=== PATIENT | female | born 1970 | race African-American/Black ===

== ENCOUNTER → 2019-05-21 | Outpatient (CLI) | payer OTHER ==
[2014-06-30 13:43] VITALS: BP 127/77
[~2019-05-21] MED LIST: ALBU2.5V14 NEB; LORA10TA68 PO; OMEP20CA16 PO; PANT40TA5 PO
--- NOTE | 2019-05-21 18:42 | RAD ---
INDICATION: Cough and congestion with shortness of air COMPARISON: July 20, 2018 FINDINGS: 2 view of chest obtained. Cardiac silhouette is similar to prior. Mild haziness retrocardiac region. Mild degenerative changes spine IMPRESSION: * Mild haziness at retrocardiac region could be secondary to atelectasis or early infiltrate. Electronically signed by: Thom Rebolledo MD (05/21/2019 6:39 PM) [id number]
== END | disposition home or self-care (01) ==
LOC: RAD 18:12
PROVIDERS: ATTEND Family Medicine
DX: R05 Cough (principal); M47.814 Spondylosis without myelopathy or radiculopathy, thoracic region
CPT/HCPCS: 71046

== ENCOUNTER → 2019-07-10 | Outpatient (CLI) | payer OTHER ==
[2014-06-30 13:43] VITALS: BP 127/77
[~2019-07-10] MED LIST changes: +AZIT250T6 PO; +IOHEXOL 300 MG/ML 75 ML VIAL. IV ONE; +MONT10TA80 PO; +PRED5TAB PO
--- NOTE | 2019-07-10 09:11 | RAD ---
EXAM: Chest CT with intravenous contrast. HISTORY: Asthma exacerbation. TECHNIQUE: Computed tomographic images of the chest were obtained following the administration of intravenous contrast. Multiplanar reformatting was performed. *One or more of the following individualized dose reduction techniques were utilized for this examination: 1. Automated exposure control. 2. Adjustment of the mA and/or kV according to patient size. 3. Use of iterative reconstruction technique. COMPARISON: None. FINDINGS: The heart is normal in size. The aorta is normal in caliber. There is no lymphadenopathy. There is no pneumothorax or pleural effusion. There are 3 mm nodules along the right major and minor fissures, consistent with incidental fissural lymph nodes. No suspicious nodule is seen. There is no infiltrate. There is a ill-defined hypodense lesion within the lateral right hepatic lobe measuring a partially 4.0 cm. There is a small splenule along the inferior aspect of the spleen. There is a 1.7 cm nodule containing a coarse calcification within the 3:00 position of the right breast. There is no suspicious osseous lesion. IMPRESSION: 1. No acute thoracic finding. 2. 4.7 cm hypodense lesion within the lateral right hepatic lobe. Liver protocol CT or MRI is recommended for characterization. 3. 1.7 cm nodule containing a calcification within the medial right breast. Correlate with recent mammogram findings. Electronically signed by: Gloria Romero MD (07/10/2019 9:08 AM) [id number]
== END | disposition home or self-care (01) ==
LOC: CT 08:31
PROVIDERS: ATTEND Family Medicine
DX: J45.901 Unspecified asthma with (acute) exacerbation (principal); R92.1 Mammographic calcification found on diagnostic imaging of breast
CPT/HCPCS: 71260; Q9967

== ENCOUNTER 2019-07-11 13:20 | Observation (INO) | payer OTHER ==
[~2019-07-11] VITALS: Ht 160 cm; Wt 110.3 kg
[~2019-07-11 13:20] MED LIST changes: -AZIT250T6 PO; -IOHEXOL 300 MG/ML 75 ML VIAL. IV ONE; -MONT10TA80 PO; -PRED5TAB PO
[2019-07-11] MEDS ORDERED: IV NORMAL SALINE 1,000ML 1,000 ML IV ONE (13:45)
[2019-07-11 14:04] LABS: BASO # 0.1 x10^3/uL (0.0-0.2); BASO % 1 % (0-3); EOS # 0.5 x10^3/uL (0.0-0.7); EOS % 6 % (0-3); HEMATOCRIT 38.1 % (36.0-47.0); LYMPH # 0.8 x10^3/uL (1.0-4.8); LYMPH % 10 % (24-48); MEAN CORPUSCULAR HEMOGLOBIN 26 pg (25-35); MEAN CORPUSCULAR HGB CONC 32 g/dL (31-37); MEAN CORPUSCULAR VOLUME 82 fL (79-100); MONO # 0.2 x10^3/uL (0.0-1.1); MONO % 3 % (0-9); NEUT # 6.8 x10^3uL (1.8-7.7); NEUT % 81 % (31-73); PLATELET COUNT 286 x10^3/uL (140-400); RED BLOOD COUNT 4.66 x10^6/uL (3.50-5.40); RED CELL DISTRIBUTION WIDTH 15.4 % (11.5-14.5); WHITE BLOOD COUNT 8.4 x10^3/uL (4.0-11.0)
--- NOTE | 2019-07-11 14:08 | RAD ---
EXAM: Chest, single view. HISTORY: Shortness of breath. COMPARISON: 07/10/2019 FINDINGS: A frontal view of the chest is obtained. There is no infiltrate, pleural effusion or pneumothorax. The heart is normal in size. IMPRESSION: No acute pulmonary finding. Electronically signed by: Gloria Romero MD (07/11/2019 2:05 PM) [id number]
[2019-07-11 14:13] LABS: CALCIUM 9.2 mg/dL (8.5-10.1); CREATININE 0.9 mg/dL (0.6-1.0); GFR 80.2; POTASSIUM 3.7 mmol/L (3.5-5.1)
[2019-07-11 14:19] LABS: ALBUMIN 3.6 g/dL (3.4-5.0); ALBUMIN/GLOBULIN RATIO 0.8 (1.0-1.7); TOTAL BILIRUBIN 0.4 mg/dL (0.2-1.0); TOTAL PROTEIN 7.9 g/dL (6.4-8.2)
[2019-07-11] MEDS ORDERED: ALBUTEROL SULFATE 2.5 MG/3 ML NEBU. CONT NEB ONE (14:30)
--- NOTE | 2019-07-11 14:32 | PHYS DOC ---
Past History Past Medical History: COPD, Hypertension Past Surgical History: No Surgical History Alcohol Use: None General Adult EDM: Chief Complaint: SHORTNESS OF BREATH HPI: HPI: 49-year-old female presents as a referral from her primary care physician for increased shortness of breath. Patient has been battling shortness of breath for couple weeks. She has had a cough for more than 2 weeks. Patient is negative for COVID-19. Her blood work was positive for Klebsiella pneumonia. She has been taking doxycycline. Patient has been taking her breathing treatments as prescribed. She has known asthmatic. She is never been hospitalized before. She continues to feel like she is wheezing. She went to her primary care physician today who gave her 125 Solu-Medrol and advised that she come here to consider admission. Patient denies fever chills. Review of Systems: Review of Systems: Constitutional: Denies fever or chills Eyes: Denies change in visual acuity HENT: Denies nasal congestion or sore throat Respiratory: Cough with shortness of breath Cardiovascular: Denies chest pain or edema GI: Denies abdominal pain, nausea, vomiting, bloody stools or diarrhea : Denies dysuria Musculoskeletal: Denies back pain or joint pain Integument: Denies rash Neurologic: Denies headache, focal weakness or sensory changes Endocrine: Denies polyuria or polydipsia Lymphatic: Denies swollen glands Psychiatric: Denies depression or anxiety Heart Score: Risk Factors: Risk Factors: DM, Current or recent (<one month) smoker, HTN, HLP, family history of CAD, obesity. Risk Scores: Score 0 - 3: 2.5% MACE over next 6 weeks - Discharge Home Score 4 - 6: 20.3% MACE over next 6 weeks - Admit for Clinical Observation Score 7 - 10: 72.7% MACE over next 6 weeks - Early Invasive Strategies Current Medications: Current Meds: Current Medications Medications (Trade) Dose Ordered Sig/Mare Start Time Stop Time Status Last Admin Dose Admin Sodium Chloride 1,000 ml @ 1,000 mls/hr 1X ONCE 07/11/19 13:45 07/11/19 14:44 Allergies: Allergies: Allergies Coded Allergies Type Severity Reaction Last Updated Verified Penicillins Allergy Unknown 06/24/14 Yes Physical Exam: PE: Constitutional: Well developed, well nourished, no acute distress, non-toxic appearance. [] HENT: Normocephalic, atraumatic, bilateral external ears normal, oropharynx moist, no oral exudates, nose normal. [] Eyes: PERRLA, EOMI, conjunctiva normal, no discharge. [] Neck: Normal range of motion, no tenderness, supple, no stridor. [] Cardiovascular:Heart rate regular rhythm, no murmur [] Lungs & Thorax: Diffuse bilateral expiratory wheezing [] Abdomen: Bowel sounds normal, soft, no tenderness, no masses, no pulsatile masses. [] Skin: Warm, dry, no erythema, no rash. [] Back: No tenderness, no CVA tenderness. [] Extremities: No tenderness, no cyanosis, no clubbing, ROM intact, no edema. [] Neurologic: Alert and oriented X 3, normal motor function, normal sensory function, no focal deficits noted. [] Psychologic: Affect normal, judgement normal, mood normal. [] Current Patient Data: Labs: Laboratory Tests Test 07/11/19 13:50 White Blood Count 8.4 x10^3/uL (4.0-11.0) Red Blood Count 4.66 x10^6/uL (3.50-5.40) Hemoglobin 12.0 g/dL (12.0-15.5) Hematocrit 38.1 % (36.0-47.0) Mean Corpuscular Volume 82 fL (79-100) Mean Corpuscular Hemoglobin 26 pg (25-35) Mean Corpuscular Hemoglobin Concent 32 g/dL (31-37) Red Cell Distribution Width 15.4 % (11.5-14.5) H Platelet Count 286 x10^3/uL (140-400) Neutrophils (%) (Auto) 81 % (31-73) H Lymphocytes (%) (Auto) 10 % (24-48) L Monocytes (%) (Auto) 3 % (0-9) Eosinophils (%) (Auto) 6 % (0-3) H Basophils (%) (Auto) 1 % (0-3) Neutrophils # (Auto) 6.8 x10^3uL (1.8-7.7) Lymphocytes # (Auto) 0.8 x10^3/uL (1.0-4.8) L Monocytes # (Auto) 0.2 x10^3/uL (0.0-1.1) Eosinophils # (Auto) 0.5 x10^3/uL (0.0-0.7) Basophils # (Auto) 0.1 x10^3/uL (0.0-0.2) Sodium Level 142 mmol/L (136-145) Potassium Level 3.7 mmol/L (3.5-5.1) Chloride Level 103 mmol/L (98-107) Carbon Dioxide Level 30 mmol/L (21-32) Anion Gap 9 (6-14) Blood Urea Nitrogen 11 mg/dL (7-20) Creatinine 0.9 mg/dL (0.6-1.0) Estimated GFR (Cockcroft-Gault) 80.2 BUN/Creatinine Ratio 12 (6-20) Glucose Level 98 mg/dL (70-99) Lactic Acid Level 1.0 mmol/L (0.4-2.0) Calcium Level 9.2 mg/dL (8.5-10.1) Total Bilirubin 0.4 mg/dL (0.2-1.0) Aspartate Amino Transferase (AST) 26 U/L (15-37) Alanine Aminotransferase (ALT) 28 U/L (14-59) Alkaline Phosphatase 92 U/L (46-116) Total Protein 7.9 g/dL (6.4-8.2) Albumin 3.6 g/dL (3.4-5.0) Albumin/Globulin Ratio 0.8 (1.0-1.7) L Vital Signs: Vital Signs Date Time Temp Pulse Resp B/P (MAP) Pulse Ox O2 Delivery O2 Flow Rate FiO2 07/11/19 13:54 98.0 120 18 154/105 (121) 96 Room Air EKG: EKG: [] Radiology/Procedures: Radiology/Procedures: [] Course & Med Decision Making: Course & Med Decision Making Pertinent Labs and Imaging studies reviewed. (See chart for details) The patient is wheezing considerably. We will give her a 10 mg albuterol treatment. I spoke with Dr. Maravilla and he has accepted the patient for admission. The patient is in agreement with this plan. [] Dragon Disclaimer: Dragon Disclaimer: This electronic medical record was generated, in whole or in part, using a voice recognition dictation system. Departure Departure: Impression: Primary Impression: Asthma exacerbation Qualified Codes: J45.41 - Moderate persistent asthma with (acute) exacerbation Disposition: 09 ADMITTED INPATIENT Admitting Physician: Jeramie Maravilla Condition: STABLE Referrals: JERAMIE MARAVILLA MD (PCP) TERRANCE NARANJO DO July 11, 2019 14:32
[2019-07-11 16:24] VITALS: BP 155/98
[2019-07-11] MEDS ORDERED: START PACK-AZITHROMY 100MG/5ML ORAL.SUSP 15ML BOTTLE STARTER PACK PO ONE (17:15)
[2019-07-11] MEDS ORDERED: DIGOXIN IV 500 MCG/2 ML AMPUL. IV ONE ×2 (18:00→18:30)
[2019-07-11] MEDS ORDERED: FUROSEMIDE 20 MG/2 ML VIAL IVP ONE (18:30)
[2019-07-11 19:39] VITALS: BP 139/93
[2019-07-11] MEDS: IPRATRPIUM/ALBUTEROL 0.5/2.5MG 3 ML NEBU. NEB SCH (21:16)
[2019-07-11] MEDS: MONTELUKAST 10 MG TABLET. PO SCH (21:16)
[2019-07-11] MEDS: methylPREDNISolone SOD SUCC PF 40 MG/ML VIAL. IV SCH (21:16)
[2019-07-11 22:06] VITALS: BP 144/91
[2019-07-12] MEDS: IPRATRPIUM/ALBUTEROL 0.5/2.5MG 3 ML NEBU. NEB SCH ×4 (05:00→21:00)
[2019-07-12 05:16] VITALS: BP 138/84
[2019-07-12] MEDS: PANTOPRAZOLE 40 MG TABLET. PO SCH (08:30)
[2019-07-12] MEDS: methylPREDNISolone SOD SUCC PF 40 MG/ML VIAL. IV SCH ×3 (08:30→20:42)
[2019-07-12] MEDS: CETIRIZINE HCL 10 MG TABLET PO SCH (08:30)
[2019-07-12] MEDS: AZITHROMYCIN 250 MG TABLET. PO SCH (08:30)
[2019-07-12] MEDS ORDERED: methylPREDNISolone SOD SUCC PF 40 MG/ML VIAL. IV SCH (09:00)
[2019-07-12] MEDS ORDERED: IPRATRPIUM/ALBUTEROL 0.5/2.5MG 3 ML NEBU. ONE (10:12)
[2019-07-12 10:52] VITALS: BP 163/92
[2019-07-12 15:18] VITALS: BP 135/87
[2019-07-12 19:24] VITALS: BP 144/85
--- NOTE | 2019-07-12 19:42 | PN ---
DATE: 07/11/2019 SUBJECTIVE: A 49-year-old female who came in with acute exacerbation of asthma. The patient is resting comfortably. She is breathing a little bit easier. She says she is able to mobilize a little bit better than she has been. OBJECTIVE: VITAL SIGNS: Blood pressure is 135/87, respiratory rate 18, pulse 99, afebrile, oxygen saturation up to 98% on room air. GENERAL: The patient does have expiratory wheezes, but there is better movement of air in between the wheezes. She says she is feeling better. CARDIOVASCULAR: Tachycardic. ABDOMEN: Soft. EXTREMITIES: No clubbing, cyanosis or edema. NEUROLOGIC: Intact. IMPRESSION: Acute exacerbation of asthma, probably allergy induced. We will continue on her breathing treatments, allergy treatments with steroids and the like and make further evaluation on her as indicated. We will continue on tapering doses of steroids and hopefully ready for discharge here soon. TARAN HILARIO MD DR: JOYCE/amy JOB#: [id number] / [id number]
[2019-07-12] MEDS: MONTELUKAST 10 MG TABLET. PO SCH (20:42)
[2019-07-12 21:51] VITALS: BP 150/98
[2019-07-13] MEDS: IPRATRPIUM/ALBUTEROL 0.5/2.5MG 3 ML NEBU. NEB SCH ×2 (05:05→09:22)
[2019-07-13 05:34] VITALS: BP 139/89
[2019-07-13] MEDS ORDERED: LACTOBACILLUS RHAMNOSUS GG 1 CAPSULE. PO SCH (09:00)
[2019-07-13] MEDS: PANTOPRAZOLE 40 MG TABLET. PO SCH (09:27)
[2019-07-13] MEDS: methylPREDNISolone SOD SUCC PF 40 MG/ML VIAL. IV SCH (09:27)
[2019-07-13] MEDS: CETIRIZINE HCL 10 MG TABLET PO SCH (09:27)
[2019-07-13] MEDS: AZITHROMYCIN 250 MG TABLET. PO SCH (09:28)
[2019-07-13] MEDS ORDERED: PRED5TAB PO (10:25)
[2019-07-13] MEDS ORDERED: AZIT250T6 PO (10:25)
[2019-07-13] MEDS ORDERED: MONT10TA80 PO (10:25)
--- NOTE | 2019-07-13 15:06 | DS ---
DATE OF DISCHARGE: 07/11/2019 HOSPITAL COURSE: A 49-year-old female who has been sick for the last 6 weeks with asthma. She has been having trouble breathing, wheezing, tightness, shortness of breath, dyspnea with exertion of about 5 feet. The patient had wanted to come in because of the COVID crisis and finally came in because she was exhausted and so weak she could not move without getting short of breath, got increasingly progressively worse despite being treated as an outpatient. The patient finally came in, went through the ER in the usual protocol and was admitted to the hospital with acute on top of chronic exacerbation of her COPD. The patient had a pulse rate of about 120. She did run a low-grade temperature. Blood pressure was elevated as well as up to 154/105. The patient was given episodes of digoxin because her heart rate went as high as 130 at one time and we had to give her digitalis 250 mcg x 2. Oxygen saturation had dropped down to 93%, but the heart rate compensated for that. Her lungs showed wheezing in all 5 lobes and using some accessory muscles, but with aggressive pulmonary toilet and IV Solu-Medrol, the patient made excellent progress and finally the lungs cleared and her heart rate did come down into a reasonable range. She felt much better, finally cleared of all wheezing and was discharged home on oral prednisone taper. She had nebulizer at home with DuoNeb. She demanded to be discharged and felt safe enough going home with family members and DuoNeb treatments, tapering dose of prednisone, staying on Zithromax and she will be discharged home with that. She did have anemia at 9.3 and 30, but other than that her chemistries are basically stable. She did have a slight elevation of blood sugar at 112, albumin 2.6 and serology was COVID-19 negative. Urine was basically, she did have a problem with urine. The patient made good progress and was discharged home. She did have a low-grade temperature, but she will continue on her Zithromax and she will continue to be monitored as an outpatient. IMPRESSION: Acute on top of chronic exacerbation of asthma, hypertensive urgency, sinus tachycardia. She will be on a heart healthy diet, decreased activity, breathing treatments at home and tapering dose of prednisone, and follow up accordingly. TARAN HILARIO MD DR: JOYCE/amy JOB#: [id number] / [id number]
[2019-07-14] MEDS ORDERED: predniSONE 20 MG TABLET PO SCH (09:00)
[2019-07-14] MEDS ORDERED: predniSONE 5 MG TABLET PO SCH (09:00)
[2019-07-16] MEDS ORDERED: predniSONE 10 MG TABLET PO SCH (09:00)
[2019-07-18] MEDS ORDERED: predniSONE 10 MG TABLET PO SCH (09:00)
[2019-07-20] MEDS ORDERED: predniSONE 10 MG TABLET PO SCH (09:00)
[2019-07-22] MEDS ORDERED: predniSONE 20 MG TABLET PO SCH (09:00)
[2019-07-24] MEDS ORDERED: predniSONE 10 MG TABLET PO SCH (09:00)
[2019-07-26] MEDS ORDERED: predniSONE 10 MG TABLET PO SCH (09:00)
[2019-07-28] MEDS ORDERED: predniSONE 5 MG TABLET PO SCH (09:00)
== END 2019-07-13 12:30 | disposition home or self-care (01) ==
LOC: ER 13:20 → UNDOADMIN 15:35 → 1 SOUTH 15:35 → INTOOBSV 15:50 → ER 15:50
PROVIDERS: ADMIT Family Medicine; ATTEND Family Medicine
DX: J45.901 Unspecified asthma with (acute) exacerbation (principal); J44.1 Chronic obstructive pulmonary disease with (acute) exacerbation; I16.0 Hypertensive urgency; D64.9 Anemia, unspecified; R00.0 Tachycardia, unspecified; Z20.828 Contact with and (suspected) exposure to other viral communicable diseases; Z88.0 Allergy status to penicillin
CPT/HCPCS: 36415; 71045; 80053; 83605; 83880; 84145; 85025; 85379; 87040; 94640; 96374; 96375; 96376; 99285; G0378; J0456; J1160; J2920; 96360; G0379; J7030; J7613

== ENCOUNTER → 2019-08-27 | Outpatient (CLI) | payer OTHER ==
[~2019-08-27] MED LIST changes: +AZIT250T6 PO; +MONT10TA80 PO; +PRED5TAB PO
--- NOTE | 2019-08-27 08:29 | RAD ---
VENOUS LOWER EXTREMITY LEFT History: Reason: LLE EDEMA / Spl. Instructions: / History: Comparison: None. Discussion: Multiple longitudinal and transverse high resolution real-time images of the venous system of left lower extremity were obtained with color and Doppler sampling. The common femoral, superficial femoral, popliteal and proximal calf veins are all patent and demonstrate normal flow and compressibility. Normal respiratory phasicity and augmentation is present. Impression: 1. No evidence of deep vein thrombosis. Electronically signed by: Bunny Jean DO (08/27/2019 8:26 AM) [id number]
== END | disposition home or self-care (01) ==
LOC: US 07:53
PROVIDERS: ATTEND Family Medicine
DX: R60.0 Localized edema (principal)
CPT/HCPCS: 93971

== ENCOUNTER → 2020-08-28 | Outpatient (CLI) | payer OTHER ==
[~2020-08-28] MED LIST changes: -PANT40TA5 PO; +PANT40TA6 PO
--- NOTE | 2020-08-28 15:06 | RAD ---
Exam: CT abdomen/pelvis without intravenous contrast Indication: Low back pain, pelvic pain, renal stone Comparison: CT chest 07/10/2019 Technique: Helical CT imaging performed of the abdomen and pelvis without the use of intravenous cont rast. Sagittal and coronal reformats were obtained. One or more of the following individualized dose reduction techniques were utilized for this examinat ion: 1. Automated exposure control 2. Adjustment of the mA and/or kV according to patient size 3. Use of iterative reconstruction technique. Findings: Inherently limited evaluation without intravenous contrast. Lower chest: Bases are clear. The heart is normal in size. Liver: There is a 2.8 cm hypodense lesion in the subcapsular right hepatic lobe with greater than flu id density. The liver is otherwise normal in appearance. Gallbladder/Biliary Tree: Gallbladder is contracted. Bile ducts are unremarkable. Pancreas: Normal. Spleen: Normal. Adrenal Glands: Normal. Kidneys/Ureters/Bladder: Kidneys are normal in size. No nephrolithiasis or hydronephrosis. Ureters ar e normal. Bladder is incompletely distended but unremarkable. Reproductive Organs: Uterus is anteverted. There is no adnexal mass. Stomach, small bowel, and colon: Stomach and small bowel are normal. Appendix is not visualized. The colon is unremarkable. Vasculature: No aortic aneurysm. Lymph Nodes: Multiple small mesenteric and retroperitoneal lymph nodes including prominent lymph node s in the right lower quadrant measuring up to 5 mm short axis (image [id number], series 2). Peritoneum and retroperitoneum: No free fluid or free air. Bones: No acute osseous abnormality. Miscellaneous: Small fat-containing umbilical and bilateral inguinal hernias. Impression: 1. No urolithiasis or hydronephrosis. 2. 2.8 cm solid hypodense lesion in the right hepatic lobe. Recommend CT or MRI with liver mass prot ocol to further evaluate, if not already performed. 3. Multiple small mesenteric and retroperitoneal lymph nodes, nonspecific. 4. Small fat-containing umbilical and inguinal hernias. Electronically signed by: Katelynn Pete MD (08/28/2020 3:04 PM) [id number]
== END ==
LOC: CT 14:35
PROVIDERS: ATTEND Family Medicine
DX: K40.20 Bilateral inguinal hernia, without obstruction or gangrene, not specified as recurrent (principal); R59.0 Localized enlarged lymph nodes; K76.9 Liver disease, unspecified; K82.0 Obstruction of gallbladder; N32.89 Other specified disorders of bladder; N20.0 Calculus of kidney; R10.2 Pelvic and perineal pain; M54.5 Low back pain
CPT/HCPCS: 74176